=== PATIENT | male | born 1985 | race Caucasian/White ===

== ENCOUNTER 2023-11-06 07:50 | Emergency (ER) | payer OTHER ==
[2023-11-06] MEDS ORDERED: Ketorolac Tromethamine 30 MG (1 mL) VIAL ONE (08:20)
[2023-11-06] MEDS ORDERED: Diazepam 10 MG/2 ML SYRINGE ONE (08:22)
== END 2023-11-06 09:03 | disposition home or self-care (01) ==
LOC: ERS 07:50
DX: M54.50 Low back pain, unspecified (principal); M46.1 Sacroiliitis, not elsewhere classified; Z55.6 Problems related to health literacy; X50.0XXA Overexertion from strenuous movement or load, initial encounter
CPT/HCPCS: 96372; 99282; J1885; J3360